=== PATIENT | male | born 1955 | race Caucasian/White ===

== ENCOUNTER 2023-09-28 14:53 | Outpatient (AMB) | payer OTHER, SELFPAY ==
[2023-09-28 14:57] VITALS: BP 118/64; PULSE 103; O2SAT 97; BMI 25.3
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
== END 2023-09-28 15:39 | disposition home or self-care (01) ==
PROVIDERS: PCP Hospitalist; Visit Provider Family Medicine
DX: T63.481A Toxic effect of venom of other arthropod, accidental (unintentional), initial encounter (principal); Z87.891 Personal history of nicotine dependence; Z00.00 Encounter for general adult medical examination without abnormal findings
CPT/HCPCS: 99203

== ENCOUNTER 2023-10-03 10:37 | Outpatient (REF) | payer OTHER, SELFPAY ==
[2023-10-03 14:27] LABS: MANUAL DIFF FLAG NO
[2023-10-03 14:30] LABS: Appearance Urine Cloudy; Color Urine Yellow; Glucose Urine UA Negative (Negative); Leukocyte Esterase Urine Trace (Negative); Nitrite Urine Negative (Negative); PH 6.5 (5.0-9.0); Specific Gravity - Urine 1.015 (1.005-1.025); UMIC TRIGGER UA YES; Urine Blood Large (3+) (Negative); Urine Ketones Negative (Negative); Urine Protein 100 (2+) mg/dL (Neg-Trace)
[2023-10-03 14:34] LABS: Basophils Absolute Auto 0.1 X10*3/uL (0.0-0.2); Basophils Percent Auto 0.7 % (0-2); Eosinophils Absolute Auto 0.2 X10*3/uL (0.0-0.4); Eosinophils Percent Auto 3.5 % (0-4); Hematocrit 33.3 % (42.0-52.0); Hemoglobin 10.4 g/dl (14.0-18.0); Imm Gran Abs Auto 0.01 X10*3/uL (0.00-0.03); Imm Gran Pct Auto 0.1 % (0.0-0.4); Lymphocytes Percent Auto 28.7 % (20-40); Mean Corpuscular HGB Conc 31.2 g/dl (31.0-36.0); Mean Corpuscular Hemoglobin 25.7 pg (27.0-33.0); Mean Corpuscular Volume 82.4 fL (80.0-98.0); Mean Platelet Volume 9.7 fL (9.4-12.4); Monocytes Absolute Auto 0.7 X10*3/uL (0.1-1.2); Neutrophils Absolute Auto 3.9 x10*3/uL (2.0-8.3); Platelet Count 413 X10*3/uL (160-400); Red Blood Count 4.04 X10*6/uL (4.60-5.80); Red Cell Distribution Width 13.6 % (11.0-16.0); White Blood Count 6.9 X10*3/uL (4.8-10.8)
[2023-10-03 14:41] LABS: Bacteria Urine 2+ (None Seen); RBC Urine >20 /HPF (0-2); Squamous Epithelial Cell Urine 0-2 /HPF (0-2); WBC Urine >50 /HPF (0-5)
[2023-10-03 14:56] LABS: Alanine Aminotransferase 54 U/L (0-40); Albumin Level 3.8 g/dL (3.5-5.0); Alkaline Phosphatase 92 U/L (39-117); Anion Gap 11 (12-20); Aspartate Amino Transferase 47 U/L (5-37); Bilirubin Total 0.8 mg/dL (0.0-1.0); Blood Urea Nitrogen 17 mg/dL (9-16); Calcium 9.5 mg/dL (8.4-10.2); Carbon Dioxide 27 mmol/L (22-29); Chloride 102 mmol/L (96-108); Cholesterol 164 mg/dL (<200); Estimated Glomerular Filt Rate > 60; Glucose Fasting 106 mg/dL (60-99); HDL Cholesterol 33 mg/dL (>40); LDL Cholesterol Calculated 110 mg/dL (<100); Potassium 3.9 mmol/L (3.3-5.1); Sodium 136 mmol/L (135-145); Total Protein 7.8 g/dL (6.5-8.0); Triglycerides 107 mg/dL (<150)
[2023-10-03 15:08] LABS: Prostate Specific Antigen Scr 0.84 ng/mL (<0.05-4.0)
[2023-10-03 15:14] LABS: Erythrocyte Sedimentation Rate 63 MM/HR (0-15)
[2023-10-03 15:15] LABS: TSH reflex Free T4 3.05 uIU/mL (0.32-4.0)
[2023-10-03 15:23] LABS: Creatinine Urine 80.85 mg/dL
[2023-10-03 15:37] LABS: Microalbum/Creatinine Ratio Ur 795.2 ug/mg cr (<30)
[2023-10-05 05:04] LABS: Lyme Blot >10.00 index
[2023-10-05 18:18] LABS: CRP High Sensitivity >10.0 mg/L
[2023-10-06 15:09] LABS: Lyme Abs Screen POSITIVE
[2023-10-06 15:25] LABS: 18 KD (IgG) Band REACTIVE; 23 KD (IgG) Band NON-REACTIVE; 23 KD (IgM) Band NON-REACTIVE; 28 KD (IgG) Band REACTIVE; 30 KD (IgG) Band REACTIVE; 39 KD (IgM) Band REACTIVE; 39KD (IgG) Band REACTIVE; 41 KD (IgM) Band REACTIVE; 41KD (IgG) Band REACTIVE; 45 KD (IgG) Band REACTIVE; 58 KD (IgG) Band REACTIVE; 66 KD (IgG) Band REACTIVE; 93 KD (IgG) Band REACTIVE; Lyme IgG Blot Interp POSITIVE (NEGATIVE); Lyme IgM Blot Interp POSITIVE (NEGATIVE)
== END 2023-10-03 10:38 | disposition home or self-care (01) ==
LOC: HO.WFDLDS 10:37
PROVIDERS: Visit Provider Family Medicine
DX: Z00.00 Encounter for general adult medical examination without abnormal findings (principal); Z12.5 Encounter for screening for malignant neoplasm of prostate; I10 Essential (primary) hypertension; T14.8XXA Other injury of unspecified body region, initial encounter; W57.XXXA Bitten or stung by nonvenomous insect and other nonvenomous arthropods, initial encounter
CPT/HCPCS: 36415; 80053; 80061; 81001; 82043; 82570; 84153; 84443; 85025; 85652; 86141; 86617; 86618

== ENCOUNTER 2023-12-06 09:22 | Outpatient (AMB) | payer OTHER, SELFPAY ==
--- NOTE | 2023-12-06 09:37 | A.OFFPC_ITS ---
Vital Signs 12/06/23 09:38 Height 5 ft 5 in Weight 163 lb BMI 27.1 BP 120/54 L Blood Pressure Location Lt brachial Position Sitting Respiration 13 Pulse 94 Pulse Source Pulse Oximeter Pulse Oximetry (%) 98 Oxygen Delivery Method Room Air Intake Visit Reasons: ed follow up Intake Note: Patient is here to follow up after taking a course of antibiotics for possible lyme disease. Patient reports he experienced weakness and pain in his hips, back and legs since finishing the antibiotics. Book Or Script Editor Required: No Accompanied by: Self / Same As Patient Allergies No Known Allergies Allergy (Verified 12/06/23 10:15) Tobacco use date assessed: 09/28/23 HPI HPI Comments History of Present Illness Details Here today for ED f/u Went to [facility] 11[facility]29/23 i do not have any records of this - however i was able to review from his [facility] portal Reports went for pain in R hip and back. He has known lymes disease. Reports no imaging done of joints. Sent home w/ no medications or change in plan. Labs indicate worsening anemia has rosemarie hematuria that comes and goes. has been present for months. PSA 09/2023 WNL . Otherwise denies overt signs of bleeding. Admits to taking ASA 325 5-6 times per day to treat his pain. denies sob, n/v. has never had a colonoscopy per his choice. Admits unintentional wt loss of 13 lbs. 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 Vision needs: Yes (presciption glasses) Questionnaire Thrive Questionnaire Date Thrive assessed: 09/28/23 KERRY-7 AMB Questionnaire KERRY-7 Date KERRY - 7 assessed: 09/28/23 Source: Developed by Drs. Lennox Gilbert, SashaGeovanni Alves and colleagues, with an educational adia from [employer]. Review of Systems Const All systems reviewed & are unremarkable except as noted in HPI and below Physical exam (Primary Care) Vital Signs: Last Vital Signs Pulse 94 12/06/23 09:38 Resp 13 12/06/23 09:38 BP 120/54 L 12/06/23 09:38 Pulse Ox 98 12/06/23 09:38 Oxygen Delivery Method Room Air 12/06/23 09:38 BMI result Body Mass Index 27.1 Tobacco/Smoking Status: Tobacco use Status Tobacco use date assessed 09/28/23 12/06/23 09:38 Patient Tobacco Use Status Former Tobacco user 12/06/23 09:38 e-Cigarette/Vaping Use Never Used 12/06/23 09:38 Thrive Assessment: Date of Thrive Assessment Date Thrive assessed 09/28/23 12/06/23 09:38 Const Other: AWAKE ALERT NAD WALKING W/ CRUTCHES CONJUNTIVAL PALLOR LS CTAB RRR NO CVAT MUSCLE WASTING OF BLE NO RASH UNABLE TO REPRODUCE PAIN ON EXAM IN RIGHT HIP/BUTTOCKS/LEG. POINTS TO TOP OF HIS HAMSTRING NEAR GLUTE SOURCE OF PAIN. Results Reviewed Results Reviewed: 11/29/23 DONE BY [facility] ED LYME IGG WB POSITIVE RBC 2.99 HGB 7.8 HCT 24.7% MCH L 26.1 MCHC 31.6 RDW L 43.5 MPV L 8.4 Assessment and Plan Assessment & Plan (1) Hospital discharge follow-up: Code(s): Z09 - Encounter for follow-up examination after completed treatment for conditions other than malignant neoplasm (2) Anemia: Code(s): D64.9 - Anemia, unspecified Qualifiers: Anemia type: unspecified type Qualified Code(s): D64.9 - Anemia, unspecified (3) Hematuria: Code(s): R31.9 - Hematuria, unspecified Qualifiers: Hematuria type: asymptomatic microscopic Qualified Code(s): R31.21 - Asymptomatic microscopic hematuria Plan 60 MINUTES SPENT REVIEWING LABS, DOCUMENTS, DEVELOPING PLAN OF CARE AND PROVIDING EDU. WORRIED ABOUT BLEED FROM EXCESSIVE ASA USE. HE IS AWARE TO STOP. WORRIED ALSO ALSO ABOUT MALIGNANCY GIVEN THE SX. LABS AND IMAGING ORDERED HE SHOULD F/U HERE IN 1 WEEK TO REVIEW THE FINDINGS AWARE HE NEEDS TO BRING STOOL SAMPLES BACK TO OFFICE Orders: Orders IRON PROFILE Today D64.9 - Anemia, unspecified, R31.9 - Hematuria, unspecified, Z09 - Encounter for follow-up examination after completed treatment for conditions other than malignant neoplasm Urine Cytology Today D64.9 - Anemia, unspecified, R31.9 - Hematuria, unspecified, Z09 - Encounter for follow-up examination after completed treatment for conditions other than malignant neoplasm PSA,Total (Free>4and<10) Today D64.9 - Anemia, unspecified, R31.9 - Hematuria, unspecified, Z09 - Encounter for follow-up examination after completed treatment for conditions other than malignant neoplasm Complete Blood Count Man Dif Today D64.9 - Anemia, unspecified, R31.9 - Hematuria, unspecified, Z09 - Encounter for follow-up examination after completed treatment for conditions other than malignant neoplasm Vitamin B12 and Folate Today D64.9 - Anemia, unspecified, R31.9 - Hematuria, unspecified, Z09 - Encounter for follow-up examination after completed treatment for conditions other than malignant neoplasm AMB Stool Occult Bld x3 gFOBT Today D64.9 - Anemia, unspecified, R31.9 - Hematuria, unspecified, Z09 - Encounter for follow-up examination after completed treatment for conditions other than malignant neoplasm, Z12.11 - Encounter for screening for malignant neoplasm of colon, Z12.12 - Encounter for screening for malignant neoplasm of rectum UA CC w/rflx Micro + Cult Today D64.9 - Anemia, unspecified, R31.9 - Hematuria, unspecified, Z09 - Encounter for follow-up examination after completed treatment for conditions other than malignant neoplasm CT abdomen pelvis wo IV con Today D64.9 - Anemia, unspecified, R31.9 - Hematuria, unspecified, Z09 - Encounter for follow-up examination after completed treatment for conditions other than malignant neoplasm Comprehensive Met. Panel Today D64.9 - Anemia, unspecified, R31.9 - Hematuria, unspecified, Z09 - Encounter for follow-up examination after completed treatment for conditions other than malignant neoplasm Patient Instructions: OK TO CONTINUE TYLENOL. NO MORE THAN 3 GRAMS/24 HOURS STOP THE ASPIRIN IMMEDIATELY Coding Level of Care Code Est Pt Level 5 (28170) Diagnoses Hospital discharge follow-up Z09 Anemia, unspecified type D64.9 Anemia type: unspecified type Asymptomatic microscopic hematuria R31.21 Hematuria type: asymptomatic microscopic
[2023-12-06 09:38] VITALS: BP 120/54; PULSE 94; RESP 13; O2SAT 98; BMI 27.1
== END 2023-12-06 10:50 | disposition home or self-care (01) ==
PROVIDERS: PCP Family Medicine; Visit Provider Nurse Practitioner Family
DX: D64.9 Anemia, unspecified (principal); R31.21 Asymptomatic microscopic hematuria; Z09 Encounter for follow-up examination after completed treatment for conditions other than malignant neoplasm
CPT/HCPCS: 99215

== ENCOUNTER 2023-12-06 10:38 | Outpatient (REF) | payer OTHER, SELFPAY ==
[2023-12-06 14:16] LABS: Urine Cytology See Pathology rpt
[2023-12-06 14:34] LABS: Baso%MD 0.6 %; Eos%MD 5.8 %; Hematocrit 24.6 % (42.0-52.0); Hemoglobin 7.5 g/dl (14.0-18.0); IG%MD 0.4 %; Mean Corpuscular HGB Conc 30.5 g/dl (31.0-36.0); Mean Corpuscular Hemoglobin 25.2 pg (27.0-33.0); Mean Corpuscular Volume 82.6 fL (80.0-98.0); Mean Platelet Volume 8.5 fL (9.4-12.4); Neut%MD 60.2 %; Platelet Count 586 X10*3/uL (160-400); Red Blood Count 2.98 X10*6/uL (4.60-5.80); Red Cell Distribution Width 14.6 % (11.0-16.0); White Blood Count 8.9 X10*3/uL (4.8-10.8)
[2023-12-06 14:39] LABS: Alanine Aminotransferase 20 U/L (0-40); Albumin Level 3.8 g/dL (3.5-5.0); Alkaline Phosphatase 95 U/L (39-117); Anion Gap 15 (12-20); Aspartate Amino Transferase 25 U/L (5-37); Bilirubin Total 0.3 mg/dL (0.0-1.0); Blood Urea Nitrogen 19 mg/dL (9-16); Calcium 10.2 mg/dL (8.4-10.2); Carbon Dioxide 27 mmol/L (22-29); Chloride 102 mmol/L (96-108); Estimated Glomerular Filt Rate > 60; Glucose Random 99 mg/dL (60-115); Iron 15 mcg/dL (45-160); Percent Iron Saturation 5 % (15-50); Potassium 4.1 mmol/L (3.3-5.1); Sodium 140 mmol/L (135-145); Total Iron Binding Capacity 289 mcg/dL (228-428); Total Protein 7.8 g/dL (6.5-8.0); Unsaturated Iron Binding 274 ug/dL
[2023-12-06 14:42] LABS: Appearance Urine Cloudy; Color Urine RED; Glucose Urine UA Negative (Negative); Nitrite Urine Negative (Negative); UMIC TRIGGER UACC YES; Urine Blood Large (3+) (Negative); Urine Ketones Negative (Negative); Urine Protein 100 (2+) mg/dL (Neg-Trace)
[2023-12-06 14:53] LABS: Leukocyte Esterase Urine Trace (Negative)
[2023-12-06 14:55] LABS: PSA,Total (Free>4and<10) 1.14 ng/mL (0.00-4.00)
[2023-12-06 14:56] LABS: RBC Urine >20 /HPF (0-2)
[2023-12-06 14:57] LABS: Bacteria Urine None Seen (None Seen); Hyaline Casts Urine 0-2 /LPF (0-2); Squamous Epithelial Cell Urine 0-2 /HPF (0-2); WBC Urine 0-5 /HPF (0-5)
[2023-12-06 15:10] LABS: Folate 12.6 ng/mL (> or = 4.0); Vitamin B12 1735 pg/mL (200-900)
[2023-12-06 16:53] LABS: Band Neutrophils Percent 0 % (3-5); Eosinophils Absolute Manual 0.1 X10*3/uL (0.0-0.4); Eosinophils Percent Manual 1 % (0-4); Lymphocytes Percent Manual 22 % (20-40); Monocytes Absolute Manual 0.6 X10*3/uL (0.1-1.2); Monocytes Percent Manual 7 % (2-11); Neutrophils Absolute Manual 6.2 X10*3/uL (2.0-8.3); Neutrophils Percent Manual 70 % (45-73)
[2023-12-06 16:54] LABS: RBC Morphology NOTED
[2023-12-06 16:55] LABS: Hypochromasia 1+ (5-14) /OIF; Platelet Estimate INCREASED (NORMAL); Platelet Morphology Comment NORMAL
== END 2023-12-06 10:39 | disposition home or self-care (01) ==
LOC: HO.WFDLDS 10:38
PROVIDERS: Visit Provider Nurse Practitioner Family
DX: R31.9 Hematuria, unspecified (principal); D64.9 Anemia, unspecified; Z12.5 Encounter for screening for malignant neoplasm of prostate; Z12.12 Encounter for screening for malignant neoplasm of rectum; Z12.11 Encounter for screening for malignant neoplasm of colon
CPT/HCPCS: 36415; 80053; 81001; 82607; 82746; 83540; 84153; 85007; 85027; 88112

== ENCOUNTER 2023-12-10 | Outpatient (REF) | payer OTHER, SELFPAY | END 2023-12-10 00:01 | disposition home or self-care (01) | LOC: HO.WFDLDS | PROVIDERS: Visit Provider Nurse Practitioner Family | DX: Z13.89 Encounter for screening for other disorder (principal) ==

== ENCOUNTER 2023-12-13 09:52 | Outpatient (AMB) | payer OTHER, SELFPAY ==
[2023-12-13 09:57] VITALS: BP 108/58; PULSE 94; O2SAT 99; BMI 26.8
--- NOTE | 2023-12-13 09:57 | A.OFFPC_ITS ---
Vital Signs 12/13/23 09:57 Height 5 ft 5 in Weight 161 lb 4 oz BMI 26.8 BP 108/58 L Blood Pressure Location Lt brachial Position Sitting Pulse 94 Pulse Source Pulse Oximeter Pulse Oximetry (%) 99 Oxygen Delivery Method Room Air Intake Visit Reasons: f/u labs Intake Note: Patient is here to follow up on his labs today. Allergies No Known Allergies Allergy (Verified 12/13/23 09:59) Tobacco use date assessed: 12/13/23 Fall risk assessment: No Falls in past year Last assessed Fall Risk: 12/13/23 Dental Screening Dental Screen Date: 12/13/23 Did you have a dental visit in the last 12 months?: Yes Did you have a dental problem in the last 6 months where you did not have access to dental care?: No Was dental information given to patient?: Patient has dentist HPI f/u labs HPI Details 68 y/o male presents to f/u labs. Labs were drawn 12/06/23. Reviewed labs with pt. Anemia. Most recent lipid panel September. Triglycerides 107. TC 164. LDL 110. HDL low at 33. Hematuria. Pt reports ongoing blood in urine. Pt also reports R hip/R thigh pain which has gotten worse the past 2 weeks. He states he has been using crutches. Pt reports he has been taking aspirin. Pt reports hx of tick bites but no recent tick bites. Pt reports he has not trialed physical therapy yet. [facility] Medical History No pertinent past medical history Social History Household Members Other:: caregiver for mother Housing: House Are you a primary care center manager to a significant other at home: No (He cares for his mother) Do you presently have visiting nurse or other home services: No Alcohol intake: never Patient Tobacco Use Status: Former Tobacco user e-Cigarette/Vaping Use: Never Used service: No Current occupational status: retired Current occupation: semi retired. Vision needs: Yes (presciption glasses) Questionnaire Thrive Questionnaire Date Thrive assessed: 09/28/23 KERRY-7 AMB Questionnaire KERRY-7 Date KERRY - 7 assessed: 09/28/23 Source: Developed by Drs. Lennox Gilbert, Sasha Thomson, Geovanni Leonard and colleagues, with an educational adia from [employer]. Review of Systems Const Denies chills, Denies fatigue, Denies fever(s), Denies headache(s) and Denies weakness ENT Denies dizziness and Denies headache(s) Card Denies chest pain, Denies lightheadedness, Denies dyspnea and Denies other (Palpitations) Resp Denies cough, Denies dyspnea, Denies wheezing and Denies other ( shortness of breath) Musc Details: Leg pain Denies numbness and Denies tingling Neuro Denies dizziness, Denies headache(s), Denies numbness, Denies tingling, Denies paresthesias and Denies weakness Psych Denies anxiety and Denies depression Endo Denies fatigue Aller/Immun Denies wheezing Physical exam (Primary Care) Vital Signs: Last Vital Signs Pulse 94 12/13/23 09:57 BP 108/58 L 12/13/23 09:57 Pulse Ox 99 12/13/23 09:57 Oxygen Delivery Method Room Air 12/13/23 09:57 BMI result Body Mass Index 26.8 Tobacco/Smoking Status: Tobacco use Status Tobacco use date assessed 12/13/23 12/13/23 10:03 Patient Tobacco Use Status Former Tobacco user 12/13/23 09:58 e-Cigarette/Vaping Use Never Used 12/13/23 09:58 Thrive Assessment: Date of Thrive Assessment Date Thrive assessed 09/28/23 12/13/23 09:58 Const General: no acute distress and well developed Nutritional Appearance: well nourished Orientation/consciousness: patient oriented x3 [facility] Head: Yes normocephalic and Yes atraumatic Eyes General: appearance normal, both eyes and all related structures Pupils: Equal, round and reactive pupils present EOM: EOMs intact bilaterally Resp Effort & Inspection: normal respiratory effort Auscultation: clear to auscultation bilaterally Cardio Rate: regular rate Rhythm: regular rhythm Heart sounds: S1 normal heart sound present, S2 normal heart sound present, no gallops, no murmurs and no rubs Neuro General: patient oriented x3 and gait normal Cranial nerves: Yes Equal, round and reactive pupils present Psych Affect: normal affect Assessment and Plan Assessment & Plan (1) Hematuria: Code(s): R31.9 - Hematuria, unspecified Qualifiers: Hematuria type: asymptomatic microscopic Qualified Code(s): R31.21 - Asymptomatic microscopic hematuria Plan: Gregory?hematuria?in?patient?who?has?been?taking?aspirin?325?mg?6?times?a?day He?had?been?asked?to?stop?this?by?KO and?had?significantly?decreased?if?but?took?some?aspirin?again?yesterday He?says?urine?color?has?gone?from?dark?red?to?faint?red Asked?him?to?discontinue?all?aspirin?and?avoid?oral?NSAIDs?for?now. He?can?use?diclofenac?and?Tylenol?for?pain Concern?for?possible?urinary?neoplasm?so?checking?CT?abdomen?pelvis?with?and?wit hout?contrast?and?I?am?checking?urine?cytology?as?well. Referred?to?Urology (2) Anemia: Code(s): D64.9 - Anemia, unspecified Qualifiers: Anemia type: unspecified type Qualified Code(s): D64.9 - Anemia, unspecified Plan: H&H?recently?checked?was?7.5 Rechecking?this?again?today.??We?discussed?that?if?it?is?lower,?I?will?send?him? to?the?ED?to?consider?transfusion. Started?iron?yesterday (3) Right hip pain: Code(s): M25.551 - Pain in right hip Plan: Right?hip?and?thigh?pain. As?above,?he?will?use?Tylenol?and?topical?NSAIDs?as?well?as?heat. I?think?he?will?also?benefit?from?physical?therapy?which?is?ordered. (4) Right thigh pain: Code(s): M79.651 - Pain in right thigh Plan: As?above Plan Close?follow-up?in?7-10?days?though?I?will?call?him?if?H&H?warrants?action. Orders: Orders Urine Cytology Today R31.21 - Asymptomatic microscopic hematuria Complete Blood Count Auto Diff Today D64.9 - Anemia, unspecified, Z00.00 - Encounter for general adult medical examination without abnormal findings Vitamin B12 and Folate Today D64.9 - Anemia, unspecified, E53.8 - Deficiency of other specified B group vitamins UA and rflx microscopic Today R31.21 - Asymptomatic microscopic hematuria, Z00.00 - Encounter for general adult medical examination without abnormal findings Comprehensive Met. Panel Today D64.9 - Anemia, unspecified IRON PROFILE Today D64.9 - Anemia, unspecified Reticulocyte Count Today D64.9 - Anemia, unspecified PT Evaluation and Treatment Today M79.606 - Pain in leg, unspecified Referrals Urology Referral R31.21 - Asymptomatic microscopic hematuria Medications: New diclofenac sodium 1% (Aleve (diclofenac)) apply to single knee, ankle, foot; for foot includes sole/toes/top of foot 4 grams topical QID 30 days 100 grams 2RF Coding Level of Care Code Est Pt Level 4 (04661) Diagnoses Asymptomatic microscopic hematuria R31.21 Hematuria type: asymptomatic microscopic Anemia, unspecified type D64.9 Anemia type: unspecified type Right hip pain M25.551 Right thigh pain M79.651
== END 2023-12-13 10:41 | disposition home or self-care (01) ==
PROVIDERS: PCP Nurse Practitioner Family; Visit Provider Family Medicine
DX: R31.21 Asymptomatic microscopic hematuria (principal); D64.9 Anemia, unspecified; M25.551 Pain in right hip; M79.651 Pain in right thigh
CPT/HCPCS: 99214

== ENCOUNTER 2023-12-13 10:47 | Outpatient (REF) | payer OTHER, SELFPAY ==
[2023-12-13 14:26] LABS: MANUAL DIFF FLAG NO
[2023-12-13 14:30] LABS: Urine Cytology See Pathology rpt
[2023-12-13 14:34] LABS: Basophils Absolute Auto 0.1 X10*3/uL (0.0-0.2); Basophils Percent Auto 0.6 % (0-2); Eosinophils Absolute Auto 0.3 X10*3/uL (0.0-0.4); Eosinophils Percent Auto 2.4 % (0-4); Hematocrit 23.9 % (42.0-52.0); Hemoglobin 7.2 g/dl (14.0-18.0); Imm Gran Abs Auto 0.05 X10*3/uL (0.00-0.03); Imm Gran Pct Auto 0.5 % (0.0-0.4); Immature Retic Fraction 19.4 % (2.3-13.4); Lymphocytes Absolute Auto 2.5 X10*3/uL (1.2-4.9); Lymphocytes Percent Auto 23.6 % (20-40); Mean Corpuscular HGB Conc 30.1 g/dl (31.0-36.0); Mean Platelet Volume 8.7 fL (9.4-12.4); Monocytes Absolute Auto 0.9 X10*3/uL (0.1-1.2); Monocytes Percent Auto 8.8 % (2-11); Neutrophils Absolute Auto 6.7 x10*3/uL (2.0-8.3); Neutrophils Percent Auto 64.1 % (45-73); Platelet Count 695 X10*3/uL (160-400); Red Blood Count 2.88 X10*6/uL (4.60-5.80); Red Cell Distribution Width 14.6 % (11.0-16.0); Retic HGB Equivalent 22.1 pg (30.0-35.0); Reticulocyte Percent 1.9 % (0.5-1.8); Reticulocytes Absolute 0.055 X10*6/uL (0.026-0.095); White Blood Count 10.4 X10*3/uL (4.8-10.8)
[2023-12-13 14:39] LABS: Appearance Urine Turbid; Color Urine RED; Glucose Urine UA Negative (Negative); Nitrite Urine Positive (Negative); UMIC TRIGGER UA YES; Urine Blood Large (3+) (Negative); Urine Ketones Negative (Negative); Urine Protein 300 (3+) mg/dL (Neg-Trace)
[2023-12-13 14:41] LABS: Leukocyte Esterase Urine Large (3+) (Negative)
[2023-12-13 14:57] LABS: Bacteria Urine 1+ (None Seen); Hyaline Casts Urine 0-2 /LPF (0-2); RBC Urine >20 /HPF (0-2); WBC Urine 21-50 /HPF (0-5)
[2023-12-13 15:02] LABS: Alanine Aminotransferase 18 U/L (0-40); Albumin Level 3.9 g/dL (3.5-5.0); Alkaline Phosphatase 106 U/L (39-117); Anion Gap 12 (12-20); Aspartate Amino Transferase 20 U/L (5-37); Bilirubin Total 0.4 mg/dL (0.0-1.0); Blood Urea Nitrogen 20 mg/dL (9-16); Calcium 10.7 mg/dL (8.4-10.2); Carbon Dioxide 28 mmol/L (22-29); Chloride 102 mmol/L (96-108); Estimated Glomerular Filt Rate > 60; Glucose Random 95 mg/dL (60-115); Iron 16 mcg/dL (45-160); Percent Iron Saturation 5 % (15-50); Potassium 4.3 mmol/L (3.3-5.1); Sodium 138 mmol/L (135-145); Total Iron Binding Capacity 319 mcg/dL (228-428); Total Protein 8.1 g/dL (6.5-8.0); Unsaturated Iron Binding 303 ug/dL
[2023-12-13 15:40] LABS: Folate 11.1 ng/mL (> or = 4.0); Vitamin B12 > 2000 pg/mL (200-900)
== END 2023-12-13 10:48 | disposition home or self-care (01) ==
LOC: HO.WFDLDS 10:47
PROVIDERS: Visit Provider Family Medicine
DX: Z00.00 Encounter for general adult medical examination without abnormal findings (principal); D64.9 Anemia, unspecified; R31.21 Asymptomatic microscopic hematuria; E53.8 Deficiency of other specified B group vitamins
CPT/HCPCS: 36415; 80053; 81001; 82607; 82746; 83540; 85025; 85045; 88112

== ENCOUNTER 2023-12-14 10:31 | Outpatient (REF) | payer OTHER, SELFPAY ==
--- NOTE | ~2023-12-14 | CT_ITS ---
EXAMINATION: CT ABDOMEN AND PELVIS WITHOUT AND WITH CONTRAST CLINICAL INFORMATION: Asymptomatic microscopic hematuria COMPARISON: None available. TECHNIQUE: Multidetector volumetric imaging was performed of the abdomen and pelvis before and after the IV administration of 85 mL of Omnipaque 350 intravenous contrast. Sagittal and coronal reformatted images were obtained on the technologist's workstation. This CT examination was performed using dose optimization techniques as appropriate, variously including the following: *Automated exposure control *Adjustment of mA and/or kV according to patient size (this includes techniques or standardized protocols for targeted exams where dose is matched to indication/reason for exam; i.e. extremities or head) *Use of iterative reconstruction technique DLP: 610 mGy-cm FINDINGS: Visualized lung bases demonstrate mild dependent atelectasis. The liver is normal in size. Gallstones are present within an otherwise unremarkable appearing gallbladder. The pancreas, spleen and adrenal glands are unremarkable. The kidneys are normal in size and demonstrate symmetric enhancement status post IV contrast administration. No renal calculi or hydronephrosis of either kidney. Normal caliber loops of small and large bowel. Mild colonic stool burden. Mild colonic diverticulosis without CT evidence to suggest active diverticulitis. Normal appendix. Normal caliber abdominal aorta demonstrating moderate atherosclerotic disease. No retroperitoneal lymphadenopathy. Fat-containing umbilical hernia. The bladder is normally distended. There is a peripherally calcified mass within the bladder which measures approximately 5.9 x 5.6 x 5.8 cm and demonstrates enhancement status post contrast administration. The prostate gland is at the upper limits of normal in size. Shotty bilateral inguinal lymph nodes. No gross free pelvic fluid. Destructive expansile lytic soft tissue mass encompassing the majority of the right hemipelvis bony architecture. This mass measures approximately 6.9 x 6.4 x 12.3 cm. There are several other lytic lesions scattered throughout the visualized axial and appendicular skeleton. CT/CT abdomen pelvis wo/w IV con IMPRESSION: 1. 5.9 cm enhancing bladder mass concerning for neoplasm. 2. Destructive expansile lytic soft tissue mass encompassing the majority of the right hemipelvis bony architecture. There are several other lytic lesions scattered throughout the visualized axial and appendicular skeleton. Findings are concerning for metastatic disease. 3. Cholelithiasis. 4. Mild colonic diverticulosis. Fleischner guidelines were followed.
[2023-12-14] MEDS: iohexoL 350 MG/ML 100 ML INFUS..BTL 85 ML IV (13:00)
== END 2023-12-14 10:32 | disposition home or self-care (01) ==
LOC: HO.CT 10:31
PROVIDERS: Visit Provider Family Medicine
DX: D64.9 Anemia, unspecified (principal); R31.21 Asymptomatic microscopic hematuria
CPT/HCPCS: 74178; Q9967

== ENCOUNTER 2023-12-18 10:57 | Outpatient (REF) | payer OTHER, SELFPAY ==
[2023-12-18 14:10] LABS: MANUAL DIFF FLAG NO
[2023-12-18 14:29] LABS: Basophils Absolute Auto 0.1 X10*3/uL (0.0-0.2); Basophils Percent Auto 0.5 % (0-2); Eosinophils Absolute Auto 0.3 X10*3/uL (0.0-0.4); Eosinophils Percent Auto 3.4 % (0-4); Imm Gran Abs Auto 0.03 X10*3/uL (0.00-0.03); Imm Gran Pct Auto 0.3 % (0.0-0.4); Lymphocytes Absolute Auto 2.1 X10*3/uL (1.2-4.9); Lymphocytes Percent Auto 22.3 % (20-40); Mean Corpuscular HGB Conc 30.5 g/dl (31.0-36.0); Mean Corpuscular Hemoglobin 24.6 pg (27.0-33.0); Mean Corpuscular Volume 80.9 fL (80.0-98.0); Mean Platelet Volume 8.3 fL (9.4-12.4); Monocytes Absolute Auto 0.9 X10*3/uL (0.1-1.2); Monocytes Percent Auto 9.5 % (2-11); Neutrophils Absolute Auto 6.1 x10*3/uL (2.0-8.3); Platelet Count 680 X10*3/uL (160-400); Red Blood Count 2.72 X10*6/uL (4.60-5.80); Red Cell Distribution Width 14.6 % (11.0-16.0); White Blood Count 9.5 X10*3/uL (4.8-10.8)
[2023-12-18 14:35] LABS: Appearance Urine Turbid; Color Urine Red; Glucose Urine UA Negative (Negative); Nitrite Urine Negative (Negative); PH 5.5 (5.0-9.0); Specific Gravity - Urine 1.015 (1.005-1.025); UMIC TRIGGER UACC YES; Urine Blood Large (3+) (Negative); Urine Ketones Negative (Negative)
[2023-12-18 14:40] LABS: Bacteria Urine 1+ (None Seen); Hyaline Casts Urine 0-2 /LPF (0-2); RBC Urine >20 /HPF (0-2); Squamous Epithelial Cell Urine 0-2 /HPF (0-2); UACC Culture Trigger YES
[2023-12-18 14:47] LABS: Hemoglobin 6.7 g/dl (14.0-18.0)
== END 2023-12-18 10:58 | disposition home or self-care (01) ==
LOC: HO.WFDLDS 10:57
PROVIDERS: Nurse Practitioner Family; Visit Provider Family Medicine
DX: Z00.00 Encounter for general adult medical examination without abnormal findings (principal); D64.9 Anemia, unspecified; R31.21 Asymptomatic microscopic hematuria
CPT/HCPCS: 36415; 81001; 85025; 87086

== ENCOUNTER 2024-01-03 12:57 | Outpatient (AMB) | payer OTHER, SELFPAY ==
--- NOTE | 2024-01-03 13:04 | A.OFFPC_ITS ---
Vital Signs 01/03/24 13:05 Height 5 ft 5 in BMI Reason not done Patient refused/unable BP 142/64 H Blood Pressure Location Rt brachial Position Sitting Respiration 13 Pulse 90 Pulse Source Pulse Oximeter Temp 98.3 F Temp Source Temporal Artery Scan Pulse Oximetry (%) 96 Oxygen Delivery Method Room Air Intake Visit Reasons: Bilateral ankle/feet swelling for 2 days, painful Intake Note: Patient states that pain is mostly in hips. Cloth Finishing Range Tender Required: No Accompanied by: Self / Same As Patient Allergies No Known Allergies Allergy (Verified 12/13/23 09:59) Medication List - Last Reconciled 01/03/24 by Megha Salas, CAREER PLACEMENT SPECIALIST- acetaminophen ER 650 mg PO Q8H diclofenac sodium 1% (Aleve (diclofenac)) 4 grams topical QID 30 days doxycycline hyclate 100 mg PO BID ferrous sulfate 324 mg PO DAILY 30 days oxybutynin chloride ER 10 mg PO DAILY phenazopyridine 200 mg PO TID Tobacco use date assessed: 12/13/23 Fall risk assessment: No Falls in past year Last assessed Fall Risk: 01/03/24 Dental Screening Dental Screen Date: 01/03/24 Did you have a dental visit in the last 12 months?: Yes Did you have a dental problem in the last 6 months where you did not have access to dental care?: No Was dental information given to patient?: Patient has dentist HPI HPI Comments History of Present Illness Details 68-year-old male with malignant neoplasm of the bladder status post transurethral resection of bladder tumor greater than 10 cm performed 12/25/2023 presents today with chief complaint of swelling of his lower extremities. Reports that this started about 2 days ago. Reports that his lower extremities were even more swollen than they are today. He denies any shortness of breath, chest pain. He is somewhat of a vague historian today seems to be slow to respond or unaware of the situation at hand. When I tried to ask him about his urology follow-up and this most recent surgery just kept talking to me about a referral to Infectious Disease for Lyme disease to treat the pain in his hip. When asked about the treatment for his bladder cancer he stated that he had a Hernandez catheter removed today and that if he was not able to void he needed to return to Urology. He is unaware of any need to treat cancer going forward. He is quite frail sitting in a wheelchair which is not his baseline. And his mother has brought him to the office today. He is on an antibiotic ordered by Urology. He denies fever. 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 Cognitive needs: No Hearing needs: No Vision needs: No (presciption glasses) Questionnaire Thrive Questionnaire Date Thrive assessed: 09/28/23 KERRY-7 AMB Questionnaire KERRY-7 Date KERRY - 7 assessed: 09/28/23 Source: Developed by Drs. Lennox Gilbert, Sasha Thomson, Geovanni Leonard and colleagues, with an educational adia from [employer]. Review of Systems Const All systems reviewed & are unremarkable except as noted in HPI and below Physical exam (Primary Care) Vital Signs: Last Vital Signs Temp 98.3 F 01/03/24 13:05 Pulse 90 01/03/24 13:05 Resp 13 01/03/24 13:05 BP 142/64 H 01/03/24 13:05 Pulse Ox 96 01/03/24 13:05 Oxygen Delivery Method Room Air 01/03/24 13:05 Tobacco/Smoking Status: Tobacco use Status Tobacco use date assessed 12/13/23 01/03/24 13:18 Patient Tobacco Use Status Former Tobacco user 01/03/24 13:18 e-Cigarette/Vaping Use Never Used 01/03/24 13:18 Thrive Assessment: Date of Thrive Assessment Date Thrive assessed 09/28/23 01/03/24 13:18 Const Other: Extremely frail, sitting in wheelchair, needs physical assist to help remove his clothing items for the physical exam such as his socks and jacket Lung sounds diminished in the left lower lobe, inspiratory and expiratory crackles throughout the rest of the lung huang New murmur appreciated, tachycardic Bilateral lower extremities with +2-3, Unable to palpate pulses due to the edema, the skin is intact and hairless, he is sitting in a wheelchair unable to walk Very vague or seem somewhat confused by what is going on which is not his baseline Assessment and Plan Assessment & Plan (1) Malignant neoplasm metastatic from bladder: Comment: Managed by Dr. Ha status post Transurethral resection of bladder tumor greater than 10 cm performed on 12/25/2023 Code(s): C67.9 - Malignant neoplasm of bladder, unspecified (2) Edema of lower extremity present on examination: Comment: There is a concern for acute CHF. Given the presentation today the decision was made to send him to [facility] for evaluation and treatment with the likelihood of admission. [address] [facility] ED expect line called. Spoke to Radha, warm hand off given. He wishes to go by private vehicle. He is here with his mother today who was able to bring him. Advised the patient I will need to see him after his admission and or emergency room workup and release. Code(s): R60.0 - Localized edema Plan: Total time spent caring for the patient today was 60 minutes. This includes time spent before the visit reviewing the chart, time spent during the visit, and time spent after the visit on documentation This note is constructed using voice recognition software. While every effort has been made to ensure accuracy in journalist, still errors may have been included Sometimes, these errors may affect the content or meaning of the given sentence . Plan [address] [facility] ED expect line called. Spoke to Radha, warm hand off given. Coding Level of Care Code Est Pt Level 5 (70964) Diagnoses Malignant neoplasm metastatic from bladder C67.9 Edema of lower extremity present on examination R60.0
[2024-01-03 13:05] VITALS: BP 142/64; PULSE 90; RESP 13; TEMP 36.8; O2SAT 96
== END 2024-01-03 14:16 | disposition home or self-care (01) ==
PROVIDERS: PCP Nurse Practitioner Family; Visit Provider Nurse Practitioner Family
DX: R60.0 Localized edema (principal); C67.9 Malignant neoplasm of bladder, unspecified
CPT/HCPCS: 99215